=== PATIENT | female | born 1950 | race Hispanic/Latino ===

== ENCOUNTER → 2017-12-09 | Outpatient (CLI) | payer MEDICARE ==
[~2017-12-09] MED LIST: CITA40TA14 PO; CLOP75TA14 PO; LEVO100T4 PO; METOPROLOL PO
== END | disposition home or self-care (01) ==
LOC: SHCH 08:46
PROVIDERS: ATTEND Internal Medicine Cardiovascular Disease
DX: I70.0 Atherosclerosis of aorta (principal); K55.059 Acute (reversible) ischemia of intestine, part and extent unspecified
CPT/HCPCS: 93978

== ENCOUNTER → 2017-12-26 | Outpatient (CLI) | payer MEDICARE ==
[~2017-12-26] MED LIST changes: +IOPAMIDOL-370 100 ML VIAL IV ONE
== END | disposition home or self-care (01) ==
LOC: RAH 07:53
PROVIDERS: ATTEND Internal Medicine Cardiovascular Disease
DX: I70.1 Atherosclerosis of renal artery (principal)
CPT/HCPCS: 74175; Q9967

== ENCOUNTER → 2019-02-22 | Outpatient (CLI) | payer MEDICARE ==
[~2019-02-22] VITALS: Ht 152.4 cm; Wt 82.6 kg
[~2019-02-22] MED LIST changes: -IOPAMIDOL-370 100 ML VIAL IV ONE; +REGADENOSON 0.4 MG/5 ML PF SYG IVP SCH
== END | disposition home or self-care (01) ==
LOC: SHCH 08:36
PROVIDERS: ATTEND Internal Medicine Cardiovascular Disease
DX: I25.810 Atherosclerosis of coronary artery bypass graft(s) without angina pectoris (principal); I10 Essential (primary) hypertension
CPT/HCPCS: 78452; 93017; 96374; A9500 ×2; J2785

== ENCOUNTER → 2019-03-05 | Outpatient (CLI) | payer MEDICARE ==
[~2019-03-05] MED LIST changes: -REGADENOSON 0.4 MG/5 ML PF SYG IVP SCH
== END | disposition home or self-care (01) ==
LOC: SHCH 14:11
PROVIDERS: ATTEND Internal Medicine Cardiovascular Disease
DX: I11.9 Hypertensive heart disease without heart failure (principal); I35.8 Other nonrheumatic aortic valve disorders
CPT/HCPCS: 93306

== ENCOUNTER → 2019-11-14 | Outpatient (CLI) | payer MEDICARE | END | disposition home or self-care (01) | LOC: SHCH 16:02 | PROVIDERS: ATTEND Internal Medicine Cardiovascular Disease | DX: I10 Essential (primary) hypertension (principal) | CPT/HCPCS: 93306 ==

== ENCOUNTER 2020-05-07 06:09 | Day surgery (SDC) | payer MEDICARE ==
[2020-05-05 10:19] LABS: BASOPHILS % (AUTO) 0.7 % (0.0-5.0); EOSINOPHILS % (AUTO) 3.3 % (0.0-8.0); HEMATOCRIT 40.9 % (36-48); LYMPHOCYTES % (AUTO) 34.9 % (21.0-51.0); MEAN CORPUSCULAR HEMOGLOBIN 26.9 pg (27.0-33.0); MEAN CORPUSCULAR HGB CONC 32.5 g/dL (32.0-36.0); MEAN CORPUSCULAR VOLUME 82.6 fL (79-99); MONOCYTES % (AUTO) 6.5 % (3.0-13.0); NEUTROPHILS % (AUTO) 54.3 % (40.0-77.0); PLATELET COUNT (AUTO) 243 K/uL (130-400); RED BLOOD CELL COUNT(AUTO) 4.95 MIL/uL (4.00-5.50); RED CELL DISTRIBUTION WIDTH 15.5 % (11.0-15.5); WHITE BLOOD COUNT (AUTO) 7.2 K/uL (4.8-10.8)
[2020-05-05 10:29] LABS: CREATININE 1.3 mg/dL (0.5-1.5); POTASSIUM 4.8 mmol/L (3.5-5.1)
[2020-05-05 10:33] LABS: INR 0.97 (0.85-1.15); PARTIAL THROMBOPLASTIN TIME 25.7 SEC (26.3-35.5); PROTHROMBIN TIME 10.5 SEC (9.6-11.6)
[2020-05-06 12:26] VITALS: BP 180/96
[2020-05-07] VITALS (10 sets, daily range): BP systolic 128–160; BP diastolic 42–80
[~2020-05-07] VITALS: Ht 149.9 cm; Wt 85.7 kg
[~2020-05-07 06:09] MED LIST changes: +CEFAZOLIN SODIUM 1 GM VIAL IVP SCH; -LEVO100T4 PO; +LEVO50TA6 PO; +MECL-160 PO; +METO25TA3 PO; -METOPROLOL PO; +NITR0.4T50 SL; +SODIUM CHLORIDE 0.9% 500ML 500 ML IV SCH
[2020-05-07] MEDS ORDERED: MEPERIDINE-PF 25 MG/ML SYG ONE ×3 (07:28→08:33)
[2020-05-07] MEDS ORDERED: MIDAZOLAM HCL 1 MG/ML 2ML VIAL ONE ×3 (07:28→08:33)
[2020-05-07] MEDS ORDERED: CEFAZOLIN SODIUM 1 GM VIAL ONE (07:28)
[2020-05-07] MEDS ORDERED: BUPIVACAINE/PF 0.25% 30ML VIAL IJ ONE (07:28)
[2020-05-07] MEDS ORDERED: LIDOCAINE HCL 1% MDV 50ML VIAL ONE (07:28)
[2020-05-07] MEDS ORDERED: SODIUM CHLORIDE 0.9% 1000ML 1,000 ML IV ONE (08:42)
[2020-05-07] MEDS ORDERED: TRAM50TA4 PO (09:27)
[2020-05-07] MEDS ORDERED: ACETAMINOPHEN-CODEINE 300/30MG TAB PO PRN (09:30)
--- NOTE | 2020-05-07 09:43 | NUR ---
Patient arrived to the room , left chest wall pacemaker battery change out was slightly swollen +2 to right insertion area of implant, Nurse Shavon REA advised MD, Doctor Magi came to evaluate patient , no concerns. Will continue to monitor.
== END 2020-05-07 13:30 | disposition home or self-care (01) ==
LOC: DAH 06:09
PROVIDERS: ATTEND Internal Medicine Cardiovascular Disease
DX: Z45.010 Encounter for checking and testing of cardiac pacemaker pulse generator [battery] (principal); I49.5 Sick sinus syndrome; I25.10 Atherosclerotic heart disease of native coronary artery without angina pectoris; I10 Essential (primary) hypertension; E78.5 Hyperlipidemia, unspecified; E11.9 Type 2 diabetes mellitus without complications; E03.9 Hypothyroidism, unspecified; Z79.01 Long term (current) use of anticoagulants; Z79.899 Other long term (current) drug therapy
CPT/HCPCS: 33215; 33228; 36415; 80048; 82948 ×2; 85025; 85610; 85730; 93005; A4215; A4221; A4222; A4223; A4663; C1785; J0690; J2175 ×3; J2250 ×3; J3490 ×2; J7030; 99156; 99157

== ENCOUNTER 2021-06-17 16:07 | Emergency (ER) | payer MEDICARE ==
[~2021-06-17] VITALS: Ht 152.4 cm; Wt 86.2 kg
[~2021-06-17 16:07] MED LIST changes: -CEFAZOLIN SODIUM 1 GM VIAL IVP SCH; -SODIUM CHLORIDE 0.9% 500ML 500 ML IV SCH; +TRAM50TA4 PO
[2021-06-17 18:20] VITALS: BP 136/63
== END 2021-06-17 18:24 | disposition home or self-care (01) ==
LOC: EDH 16:07
DX: S00.83XA Contusion of other part of head, initial encounter (principal); E11.9 Type 2 diabetes mellitus without complications; E78.00 Pure hypercholesterolemia, unspecified; I10 Essential (primary) hypertension; I25.10 Atherosclerotic heart disease of native coronary artery without angina pectoris; M19.90 Unspecified osteoarthritis, unspecified site; Z79.02 Long term (current) use of antithrombotics/antiplatelets; Z79.899 Other long term (current) drug therapy; Z95.0 Presence of cardiac pacemaker; W22.8XXA Striking against or struck by other objects, initial encounter; Y93.89 Activity, other specified; Y92.89 Other specified places as the place of occurrence of the external cause; Y99.8 Other external cause status
CPT/HCPCS: 70450; 93005

== ENCOUNTER 2021-08-29 03:18 | Emergency (ER) | payer MEDICARE ==
[~2021-08-29] VITALS: Ht 152.4 cm; Wt 83.5 kg
[2021-08-29] MEDS ORDERED: ASPIRIN 325MG TAB PO ONE (03:30)
[2021-08-29 03:39] LABS: BILIRUBIN,URINE Negative (NEGATIVE); COLOR,URINE Yellow (YELLOW); GLUCOSE, URINE (UA) 500 mg/dL (NEGATIVE); KETONES,URINE Negative (NEGATIVE); LEUKOCYTE ESTERASE ,URINE Trace (NEGATIVE); NITRATE,URINE Positive (NEGATIVE); OCCULT BLOOD,URINE Negative (NEGATIVE); PROTEIN,URINE Trace mg/dL (NEGATIVE); UROBILINOGEN,URINE 0.2 mg/dL (0.2-1.0)
[2021-08-29 03:47] LABS: APPEARANCE,URINE SLIGHTLY CLOUDY (CLEAR)
[2021-08-29 03:52] LABS: BASOPHILS % (AUTO) 0.8 % (0.0-5.0); EOSINOPHILS % (AUTO) 2.4 % (0.0-8.0); LYMPHOCYTES % (AUTO) 44.6 % (21.0-51.0); MEAN CORPUSCULAR HEMOGLOBIN 24.2 pg (27.0-33.0); MEAN CORPUSCULAR HGB CONC 31.8 g/dL (32.0-36.0); MONOCYTES % (AUTO) 8.4 % (3.0-13.0); NEUTROPHILS % (AUTO) 43.5 % (40.0-77.0); PLATELET COUNT (AUTO) 245 K/uL (130-400); RED BLOOD CELL COUNT(AUTO) 4.34 MIL/uL (4.00-5.50); RED CELL DISTRIBUTION WIDTH 15.3 % (11.0-15.5); WHITE BLOOD COUNT (AUTO) 7.5 K/uL (4.8-10.8)
[2021-08-29 04:02] LABS: CREATININE 1.3 mg/dL (0.5-1.5); POTASSIUM 4.6 mmol/L (3.5-5.1)
[2021-08-29 04:07] LABS: ALBUMIN 3.9 g/dL (3.5-5.0); BILIRUBIN,TOTAL 0.4 mg/dL (0.2-1.0); TOTAL PROTEIN, SERUM 6.9 g/dL (6.0-8.3)
[2021-08-29 04:12] LABS: BACTERIA,URINE Many /HPF (None Seen); RBC,URINE 0-1 /HPF (0-1)
[2021-08-29 04:13] LABS: SQUAMOUS EPITHELIAL CELL,UR Moderate /HPF (0-2)
[2021-08-29 05:00] VITALS: BP 134/73
== END 2021-08-29 05:51 | disposition home or self-care (01) ==
LOC: EDH 03:18
DX: R07.89 Other chest pain (principal); R00.2 Palpitations; R06.02 Shortness of breath; I25.10 Atherosclerotic heart disease of native coronary artery without angina pectoris; E11.9 Type 2 diabetes mellitus without complications; I10 Essential (primary) hypertension; M19.90 Unspecified osteoarthritis, unspecified site; Z79.02 Long term (current) use of antithrombotics/antiplatelets; Z79.82 Long term (current) use of aspirin; Z79.899 Other long term (current) drug therapy; Z95.1 Presence of aortocoronary bypass graft
CPT/HCPCS: 36415; 71045; 80053; 81001; 83690; 83880; 84484; 85025; 87077; 87088; 87186; 93005

== ENCOUNTER 2021-09-24 15:11 | Emergency (ER) | payer MEDICARE ==
[~2021-09-24] VITALS: Ht 149.9 cm; Wt 83.9 kg
[2021-09-24] MEDS ORDERED: ACETAMINOPHEN 500 MG TABLET PO ONE (15:30)
[2021-09-24] MEDS ORDERED: ACET-66 PO (16:44)
[2021-09-24 16:59] VITALS: BP 120/56
== END 2021-09-24 16:46 | disposition home or self-care (01) ==
LOC: EDH 15:11
DX: S00.83XA Contusion of other part of head, initial encounter (principal); M25.572 Pain in left ankle and joints of left foot; I10 Essential (primary) hypertension; E11.9 Type 2 diabetes mellitus without complications; I25.10 Atherosclerotic heart disease of native coronary artery without angina pectoris; F41.9 Anxiety disorder, unspecified; Z90.710 Acquired absence of both cervix and uterus; Z79.899 Other long term (current) drug therapy; W10.9XXA Fall (on) (from) unspecified stairs and steps, initial encounter; Y93.89 Activity, other specified; Y92.098 Other place in other non-institutional residence as the place of occurrence of the external cause; Y99.8 Other external cause status
CPT/HCPCS: 70450; 72125; 73600

== ENCOUNTER → 2022-03-04 | Outpatient (CLI) | payer MEDICARE ==
[~2022-03-04] MED LIST changes: +AEC81 PO; -CITA40TA14 PO; +GLIP2.5T2 PO; +LEVO175C2 PO; -LEVO50TA6 PO; +LORA0.5P MC; -MECL-160 PO; +METO-391 PO; -METO25TA3 PO; +RANO500T6 PO; -TRAM50TA4 PO
[2022-03-04 12:53] LABS: CREATININE 1.5 mg/dL (0.5-1.5); POTASSIUM 5.6 mmol/L (3.5-5.1)
== END | disposition home or self-care (01) ==
LOC: LAB 11:52
PROVIDERS: ATTEND Student in an Organized Health Care Education/Training Program
DX: E78.5 Hyperlipidemia, unspecified (principal)
CPT/HCPCS: 36415; 80048

== ENCOUNTER → 2023-01-18 | Outpatient (CLI) | payer MEDICARE ==
[~2023-01-18] MED LIST changes: +CLOP-31 PO; -CLOP75TA14 PO
[2023-01-18 16:36] LABS: CREATININE 1.4 mg/dL (0.5-1.5); POTASSIUM 5.4 mmol/L (3.5-5.1)
== END | disposition home or self-care (01) ==
LOC: LAB 13:26
PROVIDERS: ATTEND Student in an Organized Health Care Education/Training Program
DX: I10 Essential (primary) hypertension (principal)
CPT/HCPCS: 36415; 80048

== ENCOUNTER 2024-03-18 09:53 | Emergency (ER) | payer MEDICARE ==
[~2024-03-18] VITALS: Ht 154.9 cm; Wt 67.6 kg
[2024-03-18 10:10] LABS: BASOPHILS # (AUTO) 0.06 K/uL (0.00-0.20); BASOPHILS % (AUTO) 0.8 % (0.0-5.0); EOSINOPHILS # (AUTO) 0.19 K/uL (0.00-0.70); EOSINOPHILS % (AUTO) 2.4 % (0.0-8.0); HEMATOCRIT 29.7 % (36-48); IMMATURE GRANULOCYTE ABSOLUTE 0.03 K/uL (0-1); LYMPHOCYTES # (AUTO) 1.9 K/uL (1.0-4.8); LYMPHOCYTES % (AUTO) 24.4 % (21.0-51.0); MEAN CORPUSCULAR HEMOGLOBIN 21.8 pg (27.0-33.0); MEAN CORPUSCULAR VOLUME 70.4 fL (79-99); MONOCYTES # (AUTO) 0.4 K/uL (0.1-1.0); MONOCYTES % (AUTO) 5.6 % (3.0-13.0); NEUTROPHILS # (AUTO) 5.2 K/uL (1.8-7.7); NEUTROPHILS % (AUTO) 66.4 % (40.0-77.0); PLATELET COUNT (AUTO) 283 K/uL (130-400); RED BLOOD CELL COUNT(AUTO) 4.22 MIL/uL (4.00-5.50); RED CELL DISTRIBUTION WIDTH 19.4 % (11.0-15.5); WHITE BLOOD COUNT (AUTO) 7.8 K/uL (4.8-10.8)
[2024-03-18 10:18] LABS: CREATININE 1.5 mg/dL (0.5-1.0); POTASSIUM 5.5 mmol/L (3.5-5.1)
[2024-03-18 10:19] LABS: INR 1.01 (0.85-1.15); PROTHROMBIN TIME 10.9 SEC (9.6-11.6)
[2024-03-18 10:22] LABS: ALBUMIN 3.8 g/dL (3.5-5.0); BILIRUBIN,TOTAL 0.4 mg/dL (0.2-1.0); TOTAL PROTEIN, SERUM 6.8 g/dL (6.0-8.3)
[2024-03-18 10:28] LABS: B-TYPE NATRIURETIC PEPTIDE 353 pg/mL (0-100)
[2024-03-18] MEDS: FUROSEMIDE 80 MG TABLET PO ONE (11:14)
[2024-03-18] MEDS ORDERED: FUROSEMIDE 100MG VIAL IVP ONE (11:30)
[2024-03-18 12:01] VITALS: BP 132/57; PULSE 65; RESP 19; O2SAT 99
[2024-03-18] MEDS ORDERED: ASPIRIN 325MG TAB PO ONE (12:30)
[2024-03-18] MEDS ORDERED: NA ZIRCON CYCLOSIL(LOKELMA 10GM) PO ONE (12:30)
[2024-03-18] MEDS ORDERED: ACETAMINOPHEN 500 MG TABLET PO PRN (12:30)
[2024-03-18] MEDS ORDERED: HEPARIN 5,000 UNIT VIAL IV PRN (13:00)
[2024-03-18] MEDS ORDERED: HEPARIN 25,000 UNITS/250ML D5W 250 ML IV SCH (13:00)
[2024-03-18] MEDS ORDERED: METOPROLOL SUCCINATE 25 MG TAB.SR.24H PO ONE (13:00)
[2024-03-18] MEDS ORDERED: FAMOTIDINE 20MG VIAL IV SCH (21:00)
[2024-03-18] MEDS ORDERED: ATORVASTATIN 40 MG TABLET PO SCH (21:00)
[2024-03-19] MEDS ORDERED: CLOPIDOGREL 75MG TAB PO SCH (09:00)
[2024-03-19] MEDS ORDERED: METOPROLOL SUCCINATE 25 MG TAB.SR.24H PO SCH (09:00)
[2024-03-19] MEDS ORDERED: ASPIRIN 81MG CHEW TAB PO SCH (09:00)
== END 2024-03-18 12:50 | disposition left against medical advice (07) ==
LOC: EDH 09:53 → EDHIP 12:15 → UNDOADMIN 12:15 → EDH 12:50
DX: I21.3 ST elevation (STEMI) myocardial infarction of unspecified site (principal); E87.5 Hyperkalemia; E11.22 Type 2 diabetes mellitus with diabetic chronic kidney disease; I12.9 Hypertensive chronic kidney disease with stage 1 through stage 4 chronic kidney disease, or unspecified chronic kidney disease; N18.9 Chronic kidney disease, unspecified; D63.1 Anemia in chronic kidney disease; E11.65 Type 2 diabetes mellitus with hyperglycemia; I48.91 Unspecified atrial fibrillation; Z79.01 Long term (current) use of anticoagulants; Z79.02 Long term (current) use of antithrombotics/antiplatelets; Z79.82 Long term (current) use of aspirin; Z79.84 Long term (current) use of oral hypoglycemic drugs; Z79.890 Hormone replacement therapy; Z79.899 Other long term (current) drug therapy; Z90.49 Acquired absence of other specified parts of digestive tract; Z90.710 Acquired absence of both cervix and uterus; Z91.199 Patient's noncompliance with other medical treatment and regimen due to unspecified reason; Z95.0 Presence of cardiac pacemaker; Z95.1 Presence of aortocoronary bypass graft
CPT/HCPCS: 36415; 71045; 80053; 83880; 84484; 85025; 85610; 85730; 93005

== ENCOUNTER 2024-04-03 09:26 | Emergency (ER) | payer MEDICARE ==
[~2024-04-03] VITALS: Ht 152.4 cm; Wt 76.7 kg
[2024-04-03 09:30] VITALS: PULSE 63; RESP 20
[2024-04-03 11:22] VITALS: BP 107/57
[2024-04-03] MEDS: KETOROLAC 30MG VIAL (30MG/ML) IM ONE (11:53)
[2024-04-03] MEDS ORDERED: IBUP-2070 PO (12:44)
== END 2024-04-03 13:14 | disposition home or self-care (01) ==
LOC: EDH 09:26
DX: S40.011A Contusion of right shoulder, initial encounter (principal); S46.911A Strain of unspecified muscle, fascia and tendon at shoulder and upper arm level, right arm, initial encounter; R51.9 Headache, unspecified; E11.9 Type 2 diabetes mellitus without complications; I10 Essential (primary) hypertension; Z79.82 Long term (current) use of aspirin; Z79.84 Long term (current) use of oral hypoglycemic drugs; Z79.899 Other long term (current) drug therapy; Z95.0 Presence of cardiac pacemaker; Z95.1 Presence of aortocoronary bypass graft; Z98.890 Other specified postprocedural states; W01.0XXA Fall on same level from slipping, tripping and stumbling without subsequent striking against object, initial encounter; Y93.89 Activity, other specified; Y92.89 Other specified places as the place of occurrence of the external cause; Y99.8 Other external cause status
CPT/HCPCS: 99285; 70450; 72040; 73000; 73060; 73030; 96372; 93005; J1885

== ENCOUNTER 2024-07-05 14:25 | Emergency (ER) | payer MEDICARE ==
[~2024-07-05] VITALS: Ht 152.4 cm; Wt 80.7 kg
[~2024-07-05 14:25] MED LIST changes: +IBUP-2070 PO
[2024-07-05] MEDS: ADENOSINE 6MG VIAL IV ONE (14:34)
[2024-07-05 15:05] LABS: CREATININE 1.7 mg/dL (0.5-1.0); POTASSIUM 5.2 mmol/L (3.5-5.1)
[2024-07-05 15:06] LABS: BASOPHILS # (AUTO) 0.04 K/uL (0.00-0.20); BASOPHILS % (AUTO) 0.5 % (0.0-5.0); EOSINOPHILS # (AUTO) 0.21 K/uL (0.00-0.70); EOSINOPHILS % (AUTO) 2.4 % (0.0-8.0); HEMATOCRIT 32.5 % (36-48); IMMATURE GRANULOCYTE ABSOLUTE 0.04 K/uL (0-1); LYMPHOCYTES # (AUTO) 3.2 K/uL (1.0-4.8); LYMPHOCYTES % (AUTO) 36.6 % (21.0-51.0); MEAN CORPUSCULAR HEMOGLOBIN 21.3 pg (27.0-33.0); MEAN CORPUSCULAR HGB CONC 30.2 g/dL (32.0-36.0); MEAN CORPUSCULAR VOLUME 70.5 fL (79-99); MONOCYTES # (AUTO) 0.5 K/uL (0.1-1.0); MONOCYTES % (AUTO) 5.5 % (3.0-13.0); NEUTROPHILS # (AUTO) 4.8 K/uL (1.8-7.7); NEUTROPHILS % (AUTO) 54.5 % (40.0-77.0); PLATELET COUNT (AUTO) 319 K/uL (130-400); RED BLOOD CELL COUNT(AUTO) 4.61 MIL/uL (4.00-5.50); RED CELL DISTRIBUTION WIDTH 18.5 % (11.0-15.5); WHITE BLOOD COUNT (AUTO) 8.7 K/uL (4.8-10.8)
[2024-07-05 15:50] LABS: B-TYPE NATRIURETIC PEPTIDE 739 pg/mL (0-100)
[2024-07-05 16:23] LABS: APPEARANCE,URINE CLEAR (CLEAR); BILIRUBIN,URINE NEGATIVE (NEGATIVE); COLOR,URINE LIGHT-YELLOW (YELLOW); GLUCOSE, URINE (UA) TRACE mg/dL (NEGATIVE); KETONES,URINE NEGATIVE (NEGATIVE); LEUKOCYTE ESTERASE ,URINE NEGATIVE Leu/uL (NEGATIVE); NITRATE,URINE 2+ (NEGATIVE); OCCULT BLOOD,URINE NEGATIVE (NEGATIVE); PH,URINE 5.5 (5.0-8.0); PROTEIN,URINE NEGATIVE (NEGATIVE); UROBILINOGEN,URINE 0.2 mg/dL (0.2-1.0)
[2024-07-05 16:25] LABS: ADD UA MICROSCOPIC YES
[2024-07-05 16:29] LABS: BACTERIA,URINE RARE /HPF (None Seen); MUCUS,URINE RARE LPF (None Seen); RBC,URINE 0-1 /HPF (0-1); SQUAMOUS EPITHELIAL CELL,UR RARE /HPF (0-2)
[2024-07-05 18:02] VITALS: BP 156/54; PULSE 64; RESP 16; TEMP 98.3; O2SAT 100
== END 2024-07-05 18:07 | disposition left against medical advice (07) ==
LOC: EDH 14:25
DX: I47.10 Supraventricular tachycardia, unspecified (principal); E11.9 Type 2 diabetes mellitus without complications; E78.00 Pure hypercholesterolemia, unspecified; I10 Essential (primary) hypertension; M19.90 Unspecified osteoarthritis, unspecified site; Z95.0 Presence of cardiac pacemaker; Z79.899 Other long term (current) drug therapy; Z79.84 Long term (current) use of oral hypoglycemic drugs; Z79.82 Long term (current) use of aspirin; Z95.1 Presence of aortocoronary bypass graft
CPT/HCPCS: 99285; 96374; 71045; 84484; 80048; 83880; 85025; 87086 ×2; 87186; 81001; 36415; 93005 ×2; J0153

== ENCOUNTER 2024-07-28 09:07 | Emergency (ER) | payer MEDICARE ==
[~2024-07-28] VITALS: Ht 152.4 cm; Wt 79.4 kg
[2024-07-28 09:24] LABS: BASOPHILS # (AUTO) 0.07 K/uL (0.00-0.20); BASOPHILS % (AUTO) 0.7 % (0.0-5.0); EOSINOPHILS # (AUTO) 0.24 K/uL (0.00-0.70); EOSINOPHILS % (AUTO) 2.2 % (0.0-8.0); HEMATOCRIT 31.3 % (36-48); IMMATURE GRANULOCYTE ABSOLUTE 0.04 K/uL (0-1); LYMPHOCYTES # (AUTO) 3.2 K/uL (1.0-4.8); LYMPHOCYTES % (AUTO) 29.7 % (21.0-51.0); MEAN CORPUSCULAR HEMOGLOBIN 21.3 pg (27.0-33.0); MEAN CORPUSCULAR VOLUME 70.8 fL (79-99); MONOCYTES # (AUTO) 0.8 K/uL (0.1-1.0); MONOCYTES % (AUTO) 7.6 % (3.0-13.0); NEUTROPHILS # (AUTO) 6.4 K/uL (1.8-7.7); NEUTROPHILS % (AUTO) 59.4 % (40.0-77.0); PLATELET COUNT (AUTO) 325 K/uL (130-400); RED BLOOD CELL COUNT(AUTO) 4.42 MIL/uL (4.00-5.50); RED CELL DISTRIBUTION WIDTH 18.5 % (11.0-15.5); WHITE BLOOD COUNT (AUTO) 10.7 K/uL (4.8-10.8)
[2024-07-28] MEDS: ADENOSINE 6MG VIAL IV ONE ×3 (09:35→09:36)
[2024-07-28] MEDS: LACTATED RINGERS 1000ML 1,000 ML IV ONE (09:37)
[2024-07-28 09:47] LABS: CREATININE 1.6 mg/dL (0.5-1.0); POTASSIUM 5.2 mmol/L (3.5-5.1)
[2024-07-28 09:48] LABS: PROTHROMBIN TIME 10.8 SEC (9.6-11.6)
[2024-07-28 09:49] LABS: B-TYPE NATRIURETIC PEPTIDE 509 pg/mL (0-100); PARTIAL THROMBOPLASTIN TIME 24.5 SEC (26.3-35.5)
[2024-07-28 09:52] LABS: MAGNESIUM 2.1 mg/dL (1.80-2.40)
--- NOTE | 2024-07-28 09:59 | HMCIMG ---
PORTABLE CHEST RADIOGRAPH INDICATION: SVT COMPARISON: 07/05/2024 FINDINGS: Extensive hardware overlying the field of view slightly limits the study. Heart size is normal. The pulmonary vascularity and maldonado appear normal. No abnormal pulmonary parenchymal opacity or consolidation identified. No significant pleural effusion noted. No pneumothorax detected. IMPRESSION: No radiographic evidence for any acute cardiopulmonary process.
--- NOTE | 2024-07-28 10:04 | ERN ---
General Chief Complaint: Palpitations Stated Complaint: PALPITATIONS Time Seen by MD: 09:10 Source: patient History of Present Illness Initial Comments Patient is a 74-year-old female coming in to be evaluated for racing heart. Patient states he has a history of SVT and symptoms began earlier today. No fever no chills. Allergies: Coded Allergies: No Known Allergies (Verified Allergy, Unknown, 08/28/23) No Known Drug Allergies (Verified Allergy, Unknown, 12/26/15) Home Meds Active Scripts Ibuprofen (Ibuprofen) 600 Mg Tablet, 600 MG PO [id number] PRN for PAIN, #12 TAB 0 Refills Prov:STEPHANY TERAN Mian MCCLAIN 04/03/24 Metoprolol Succinate (Metoprolol Succinate) 50 Mg Tab.er.24h, 50 MG PO DAILY for 90 Days, #90 TAB 1 Refill Prov:PENNY SR Jr., MD 02/08/22 Aspirin (ASPIRIN 81 MG ECTAB) 81 Mg Ectab, 81 MG PO DAILY for 90 Days, #90 TAB.EC Prov:PENNY SR Jr., MD 02/08/22 Reported Medications Levothyroxine Sodium (Levothyroxine) 175 Mcg Capsule, 175 MCG PO DAILY, CAP 02/07/22 Glipizide (Glipizide ER) 2.5 Mg Tab.er.24, 2.5 MG PO DAILY 02/07/22 Ranolazine (Ranolazine ER) 500 Mg Tab.er.12h, 500 MG PO BID, TAB 02/07/22 Lorazepam (Lorazepam) 0.5 Gm Powder, 0.5 GM MC DAILY PRN for ANXIETY/AGITATION, APPL 02/07/22 Nitroglycerin (Nitroglycerin) 0.4 Mg Tab.subl, 0.4 MG SL q5min x3 PRN for CHEST PAIN, TAB.SL 05/06/20 Clopidogrel Bisulfate (Plavix) 75 Mg Tablet, 75 MG PO DAILY, TAB 12/26/15 Past Medical History Past Medical History: Diabetes-Type II, High Cholesterol, Hypertension Medical History Other: OA, Past Surgical History: CABG Surgical History Other: PACEMAKER Social History Social History: Negative, Lives with family, Other Female( History) History: Not Applicable ROS Dictation CONSTITUTIONAL: No chills, no fever, no weakness, diaphoresis, no malaise. HEAD/FACE: No signs of trauma. EENT: No eye pain, no blurred vision, no tearing, no double vision, no ear pain, no ear discharge, no nose pain, no nasal congestion, no throat pain, no throat swelling, no mouth pain. RESPIRATORY: No cough, no orthopnea, no SOB, no stridor, no wheezing. CARDIOVASCULAR: No chest pain, no edema, no palpitations, no syncope. GASTROINTESTINAL/ABDOMINAL: No abdominal pain, no constipation, no diarrhea, no nausea, no vomiting. GENITOURINARY: No abnormal discharge, no dysuria, no frequent urination, no hematuria. No complaints of pain in the genitals. MUSCULOSKELETAL: No back pain, no gout, no joint pain, no joint swelling, no muscle pain, no muscle stiffness, no neck pain. INTEGUMENTARY: No change in color, no change in hair/nails, no dryness, no lesion, no lumps, no rash. NEUROLOGICAL/PSYCH: No anxiety, not depressed, no emotional problem, no headache, no numbness, no pre-existing deficit, no history of seizures, no tr emors, no weakness. HEMATOLOGIC/LYMPHATIC: Not anemic, no history of blood clots, no apparent bleeding, no bruising, glands not swollen. All Systems Negative, Except as Noted. Physical Exam Physical Exam Dictation VITAL SIGNS: Reviewed. GENERAL APPEARANCE: Alert, oriented x3, acute distress, obese. HEAD AND FACE: Non-traumatic. EYES: PERRL, pink conjunctivas, eyelid no trauma, anterior chamber clear. EARS: Pinnas intact and no signs of trauma or erythema. Ear canals clear and no discharge. TMs no erythema. NOSE: No discharge, no bleeding. OROPHARYNX: Mouth normal, teeth no caries, tongue pink. Pharynx clear, no erythema. Tonsils no exudates, no abscesses noted. Mucous membrane moist. NECK: Supple, non-tender, no thyromegaly, no masses, no JVD, no bruits. BREAST: Deferred. CHEST: No tenderness, no crepitus, no paradoxical movement, no retractions. LUNGS: Clear, well-ventilated, symmetric, no rales, no wheezing, no rhonchi, no stridor, good breath sounds bilaterally. HEART: Regular rate, regular rhythm, no murmur, no gallops. VASCULAR: No peripheral edema. ABDOMEN: Soft, positive bowel sounds, nondistended, no guarding, nontender, no rebound, no masses no hepatomegaly, no splenomegaly, no Sanchez's sign, no hernias. RECTAL: Deferred. GENITAL: Deferred. NEUROLOGICAL: Normal speech, gross motor function intact, gross sensory f unction intact. MUSCULOSKELETAL: Neck nontender, full range of motion, back nontender, full range of motion. EXTREMITIES: Nontender, full range of motion. SKIN: Color pink, dry, no turgor, no rash, no lacerations, no abrasions, no contusions. LYMPHATICS: Deferred. Results Laboratory and Microbiology Lab and Micro Result Laboratory Tests Test 07/28/24 09:10 07/28/24 10:09 White Blood Count 10.7 K/uL (4.8-10.8) Red Blood Count 4.42 MIL/uL (4.00-5.50) Hemoglobin 9.4 g/dL (12.0-16.0) L Hematocrit 31.3 % (36-48) L Mean Corpuscular Volume 70.8 fL (79-99) L Mean Corpuscular Hemoglobin 21.3 pg (27.0-33.0) L Mean Corpuscular Hemoglobin Concent 30.0 g/dL (32.0-36.0) L Red Cell Distribution Width 18.5 % (11.0-15.5) H Platelet Count 325 K/uL (130-400) Mean Platelet Volume 9.9 fL (7.5-10.5) Immature Granulocyte % (Auto) 0.4 % (0-1) Neutrophils (%) (Auto) 59.4 % (40.0-77.0) Lymphocytes (%) (Auto) 29.7 % (21.0-51.0) Monocytes (%) (Auto) 7.6 % (3.0-13.0) Eosinophils (%) (Auto) 2.2 % (0.0-8.0) Basophils (%) (Auto) 0.7 % (0.0-5.0) Neutrophils # (Auto) 6.4 K/uL (1.8-7.7) Lymphocytes # (Auto) 3.2 K/uL (1.0-4.8) Monocytes # (Auto) 0.8 K/uL (0.1-1.0) Eosinophils # (Auto) 0.24 K/uL (0.00-0.70) Basophils # (Auto) 0.07 K/uL (0.00-0.20) Absolute Immature Granulocyte (auto 0.04 K/uL (0-1) Nucleated Red Blood Cells 0.0 % (0.0-0.19) Prothrombin Time 10.8 SEC (9.6-11.6) Prothromb Time International Ratio 1.00 (0.85-1.15) Activated Partial Thromboplast Time 24.5 SEC (26.3-35.5) L Sodium Level 139 mmol/L (136-145) Potassium Level 5.2 mmol/L (3.5-5.1) H Chloride Level 105 mmol/L (101-111) Carbon Dioxide Level 23 mmol/L (21-32) Blood Urea Nitrogen 23 mg/dL (7-18) H Creatinine 1.6 mg/dL (0.5-1.0) H Glomerular Filtration Rate Calc 33 mL/min (>90) Random Glucose 271 mg/dL (70-105) H Total Calcium 8.5 mg/dL (8.5-10.1) Magnesium Level 2.10 mg/dL (1.80-2.40) Total Creatine Kinase 35 U/L (21-232) # Troponin I High Sensitivity 14 ng/L (4-50) B-Type Natriuretic Peptide 509 pg/mL (0-100) H Urine Color LIGHT-YELLOW (YELLOW) Urine Appearance CLOUDY (CLEAR) H Urine pH 5.0 (5.0-8.0) Urine Specific [place] 1.010 (1.001-1.031) Urine Protein 10 mg/dL (NEGATIVE) H Urine Glucose (UA) 50 mg/dL (NEGATIVE) H Urine Ketones NEGATIVE mg/dL (NEGATIVE) Urine Occult Blood NEGATIVE (NEGATIVE) Urine Nitrate 1+ (NEGATIVE) H Urine Bilirubin NEGATIVE mg/dL (NEGATIVE) Urine Urobilinogen 0.2 mg/dL (0.2-1.0) Urine Leukocyte Esterase 75 Kenny/uL (NEGATIVE) H Labs Reviewed?: Yes EKG/XRAY/US/CT/MRI EKG Comment 07/28/2024 time 9:17 a.m. Ventricular rate [address] wave elevation or depression 2nd EKG 07/28/2024 time 9:31 a.m. Ventricular rate [address] wave elevation or depression MN 64 MDM MDM: Differential diagnosis: SVT, CHF, UTI Rationale: Tests considered and ordered secondary to shared decision making include: labs, ECG and radiology Previous outside records reviewed: Old ER visits. Risk of complication and/or morbidity or mortality of patient management: None Medications-Per medication reconciliation Need for hospitalization: Patient does meet criteria for hospitalization. Need for emergency major/minor surgery: No There are no social concerns with this patient. Prescription drug management Prescriptions will include symptomatic care Patient's prior external medical records from other ER visits were reviewed by me as indicated. Prior testing and results from previous visits were reviewed. Prior tests were taken into account with medical decision making and resource utilization, independent historian/historians were used to obtain complete medical history. I independently interpreted the test that were performed, results were reviewed by me and considered findings on radiology if ordered. Medical management and examination interpretation discussions were had by me with other qualified healthcare professionals as indicated for the patient's care. Patient is a 74-year-old female coming in to be evaluated for racing heart. On initial EKG patient presenting with SVT although she does have a history of SVT patient has multiple comorbidities so patient will be admitted under the care of hospitalist group for ongoing management. Patient did receive adenosine 6 mg x 1 SVT improved significantly. ED Course Orders Procedure Category Date Status Time Cbc With Differential LAB 07/28/24 In Process 09:14 Prothrombin Time With LAB 07/28/24 Complete INR 09:14 B-Type Natriuretic LAB 07/28/24 In Process Peptide 09:14 Chest 1vw RAD 07/28/24 Resulted 09:14 12 Lead Ekg Tracing- EKG 07/28/24 Logged Technical 09:14 Lactated Ringers PHA 07/28/24 Complete 1000ml (Lactated 09:30 Magnesium LAB 07/28/24 Complete 09:14 Creatine Kinase, Total LAB 07/28/24 Complete 09:14 Troponin I High LAB 07/28/24 Complete Sensitivity 09:14 Urinalysis Profile LAB 07/28/24 In Process 09:14 Partial LAB 07/28/24 Complete Thromboplastin Time 09:14 Basic Metabolic Panel LAB 07/28/24 Complete 09:14 Adenosine 6mg Vial PHA 07/28/24 Complete (Adenocard 6mg Vial) 09:30 Adenosine 6mg Vial PHA 07/28/24 Complete (Adenocard 6mg Vial) 09:30 Adenosine 6mg Vial PHA 07/28/24 Complete (Adenocard 6mg Vial) 09:17 12 Lead Ekg Tracing- EKG 07/28/24 Logged Technical 09:43 Culture Urine EZRA 07/28/24 Logged 10:44 Ceftriaxone 1g Vial PHA 07/28/24 Verified (Rocephine 1g Inj) 11:00 Furosemide 20mg Vial PHA 07/28/24 Verified (Lasix 20mg Vial) 11:00 Na Zircon PHA 07/28/24 Verified Cyclosil-Lokelma 10g 11:00 Current Medications Medications (Trade) Dose Ordered Sig/Wilson Route PRN Reason Start Time Stop Time Status Last Admin Dose Admin Adenosine (Adenocard 6mg Vial) 6 mg ONCE ONCE IV 07/28/24 09:30 07/28/24 09:31 DC 07/28/24 09:35 Adenosine (Adenocard 6mg Vial) 6 mg STK-MED ONCE IV 07/28/24 09:17 07/28/24 09:17 DC Adenosine (Adenocard 6mg Vial) 12 mg ONCE ONCE IV 07/28/24 09:30 07/28/24 09:31 DC Lactated Ringer's 1,000 ml @ 0 mls/hr ONCE ONCE IV 07/28/24 09:30 07/28/24 09:31 DC 07/28/24 09:37 Vital Signs Date Time Temp Pulse Resp B/P (MAP) Pulse Ox O2 Delivery O2 Flow Rate FiO2 07/28/24 09:47 71 16 121/59 99 Room Air* 0 21 07/28/24 09:35 173 07/28/24 09:15 176 24 95/56 98 Room Air* 0 21 07/28/24 09:12 98.2 173 20 107/64 100 Room Air 0 Additional Procedures Additional Procedures : Additional Procedures: cardioversion/defib Progress Adenosine given since SVT was present patient improved heart rate improved. Critical Care Note Comments Critical Care Procedure Note Authorized and Performed by: Total critical care time: Approximately 36 minutes Due to a high probability of clinically significant, life threatening deterioration, the patient required my highest level of preparedness to intervene emergently and I personally spent this critical care time directly and personally managing the patient. This critical care time included obtaining a history; examining the patient; pulse oximetry; ordering and review of studies; arranging urgent treatment with development of a management plan; evaluation of patient's response to treatment; frequent reassessment; and, discussions with other providers. This critical care time was performed to assess and manage the high probability of imminent, life-threatening deterioration that could result in multi-organ failure. It was exclusive of separately billable procedures and treating other patients and teaching time. Please see MDM section and the rest of the note for further information on patient assessment and treatment. DX & DISP Disposition: Inpatient Decision to Admit Time: 10:54 Departure Impression: Primary Impression: Hyperkalemia Additional Impressions: SVT (supraventricular tachycardia), Acute on chronic diastolic CHF (congestive heart failure) Condition: Stable Referrals: KENNETH COOL (PCP) NICOLLE FRAGA MD Jul 28, 2024 10:03
[2024-07-28 10:37] LABS: APPEARANCE,URINE CLOUDY (CLEAR); BILIRUBIN,URINE NEGATIVE (NEGATIVE); COLOR,URINE LIGHT-YELLOW (YELLOW); GLUCOSE, URINE (UA) 50 mg/dL (NEGATIVE); KETONES,URINE NEGATIVE (NEGATIVE); LEUKOCYTE ESTERASE ,URINE 75 Leu/uL (NEGATIVE); NITRATE,URINE 1+ (NEGATIVE); OCCULT BLOOD,URINE NEGATIVE (NEGATIVE); PROTEIN,URINE 10 mg/dL (NEGATIVE); UROBILINOGEN,URINE 0.2 mg/dL (0.2-1.0)
[2024-07-28 10:43] LABS: ADD UA MICROSCOPIC YES
--- NOTE | 2024-07-28 11:04 | NUR ---
SPOKE WITH DR. BARFIELD, HE WAS CONSULTED
[2024-07-28 11:17] LABS: BACTERIA,URINE RARE /HPF (None Seen); MUCUS,URINE RARE LPF (None Seen); RBC,URINE 0-1 /HPF (0-1); SQUAMOUS EPITHELIAL CELL,UR RARE /HPF (0-2)
--- NOTE | 2024-07-28 11:19 | PN ---
[facility] PROGRESS NOTE Date of Service: Jul 28, 2024 Time of Service: 11:14 DATE OF SERVICE:07/28/2024 74-year-old female with past medical history of hypertension, hyperlipidemia, history of atrial fibrillation, SVT, CAD status post CABG, history of pacemaker placement who presented to the hospital for palpitations. I was requested to admit the patient by ED provider. When I saw the patient; patient is currently declining to be admitted. Patient's is also present at bedside. Patient is alert oriented x 4 and currently declines to be admitted. I did discuss with patient that she had SVT needing adenosine. She also has evidence of mild hyperkalemia with acute kidney injury on chronic kidney disease. She also has suspected UTI. I did discuss that I was planning to admit her for observation for today with consultation with Cardiology. Patient has declined to be admitted and declines to be interviewed further. I did not place any orders and I was unable to perform physical examination since patient declined. I discussed this with ED provider who will further coordinate care with the patient. Hospitalist service is available for admission if patient decides to be admitted. I did discuss this with ED provider. Discussed with patient regarding increased mortality and morbidity if she decides to leave against medical advice. Ellyn Martin MD REVIEW OF SYSTEMS Unable to obtain. Patient declined PHYSICAL EXAM Patient declined Vital Signs (last 8hr) Date Time Temp Pulse Resp B/P (MAP) Pulse Ox O2 Delivery O2 Flow Rate FiO2 07/28/24 09:47 71 16 121/59 99 Room Air* 0 21 07/28/24 09:35 173 07/28/24 09:15 176 24 95/56 98 Room Air* 0 21 07/28/24 09:12 98.2 173 20 107/64 100 Room Air 0 LABS: Laboratory: Test 07/28/24 10:09 07/28/24 09:10 Range/Units Urine Color LIGHT-YELLOW YELLOW Urine Appearance CLOUDY H CLEAR Urine pH 5.0 5.0-8.0 Urine Specific [place] 1.010 1.001-1.031 Urine Protein 10 H NEGATIVE mg/dL Urine Glucose (UA) 50 H NEGATIVE mg/dL Urine Ketones NEGATIVE NEGATIVE mg/dL Urine Occult Blood NEGATIVE NEGATIVE Urine Nitrate 1+ H NEGATIVE Urine Bilirubin NEGATIVE NEGATIVE mg/dL Urine Urobilinogen 0.2 0.2-1.0 mg/dL Urine Leukocyte Esterase 75 H NEGATIVE Kenny/uL White Blood Count 10.7 4.8-10.8 K/uL Red Blood Count 4.42 4.00-5.50 MIL/uL Hemoglobin 9.4 L 12.0-16.0 g/dL Hematocrit 31.3 L 36-48 % Mean Corpuscular Volume 70.8 L 79-99 fL Mean Corpuscular Hemoglobin 21.3 L 27.0-33.0 pg Mean Corpuscular Hemoglobin Concent 30.0 L 32.0-36.0 g/dL Red Cell Distribution Width 18.5 H 11.0-15.5 % Platelet Count 325 130-400 K/uL Mean Platelet Volume 9.9 7.5-10.5 fL Immature Granulocyte % (Auto) 0.4 0-1 % Neutrophils (%) (Auto) 59.4 40.0-77.0 % Lymphocytes (%) (Auto) 29.7 21.0-51.0 % Monocytes (%) (Auto) 7.6 3.0-13.0 % Eosinophils (%) (Auto) 2.2 0.0-8.0 % Basophils (%) (Auto) 0.7 0.0-5.0 % Neutrophils # (Auto) 6.4 1.8-7.7 K/uL Lymphocytes # (Auto) 3.2 1.0-4.8 K/uL Monocytes # (Auto) 0.8 0.1-1.0 K/uL Eosinophils # (Auto) 0.24 0.00-0.70 K/uL Basophils # (Auto) 0.07 0.00-0.20 K/uL Absolute Immature Granulocyte (auto 0.04 0-1 K/uL Nucleated Red Blood Cells 0.0 0.0-0.19 % Prothrombin Time 10.8 9.6-11.6 SEC Prothromb Time International Ratio 1.00 0.85-1.15 Activated Partial Thromboplast Time 24.5 L 26.3-35.5 SEC Sodium Level 139 136-145 mmol/L Potassium Level 5.2 H 3.5-5.1 mmol/L Chloride Level 105 101-111 mmol/L Carbon Dioxide Level 23 21-32 mmol/L Blood Urea Nitrogen 23 H 7-18 mg/dL Creatinine 1.6 H 0.5-1.0 mg/dL Glomerular Filtration Rate Calc 33 >90 mL/min Random Glucose 271 H 70-105 mg/dL Total Calcium 8.5 8.5-10.1 mg/dL Magnesium Level 2.10 1.80-2.40 mg/dL Total Creatine Kinase 35 # 21-232 U/L Troponin I High Sensitivity 14 4-50 ng/L B-Type Natriuretic Peptide 509 H 0-100 pg/mL DIAGNOSTICS / RADIOLOGY: [ ] Assessment : SVT Mild Hyperkalemia BRAIN on CKD Suspected UTI History of a fib History of pacemaker placement Hypertension Hyperlipidemia Plan Pt declined to be admitted. No admission orders were placed since patient declined admission. I discussed this with Dr Bertrand. Pt is A & O x 4 and understands the risks of not being admitted including increased risk of morbidity and mortality. Hospitalist service will be available if patient changes her mind. Further care to be provided by ED. ELLYN Pinedo MD, MD Jul 28, 2024 11:19
[2024-07-28] MEDS: NA ZIRCON CYCLOSIL(LOKELMA 10GM) PO ONE (11:21)
[2024-07-28] MEDS: furoSEMIDE 20MG VIAL IV ONE (11:21)
[2024-07-28] MEDS: cefTRIAXone 1G VIAL IVPB ONE (11:21)
[2024-07-28] MEDS ORDERED: CEPH500B PO (11:33)
[2024-07-28 12:02] VITALS: BP 133/60; PULSE 68; RESP 16; TEMP 98.2; O2SAT 100
--- NOTE | 2024-07-29 18:02 | EKG ---
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1950 Requested By: NICOLLE FRAGA Order Number: [id number] Reading MD: Spencer Vincent Measurements Intervals [place] Rate: 67 P: 0 GA: 64 QRS: -12 QRSD: 89 T: 159 QT: 441 QTc: 466 Interpretive Statements Atrial-paced rhythm Probable anterior infarct, age indeterminate Abnormal T, consider ischemia, lateral leads Compared to ECG 07/05/2024 14:25:36 Myocardial infarct finding now present T-wave abnormality now present Early repolarization no longer present Possible ischemia still present Electronically Signed On 07-30-2024 19:56:24 DIRECTOR OF ESTATE by Spencer Vincent Please click the below link to view image of tracing.
--- NOTE | 2024-07-30 07:37 | EKG ---
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
== END 2024-07-28 12:12 | disposition left against medical advice (07) ==
LOC: EDH 09:07
DX: E87.5 Hyperkalemia (principal); I47.10 Supraventricular tachycardia, unspecified; I50.33 Acute on chronic diastolic (congestive) heart failure; E11.9 Type 2 diabetes mellitus without complications; I10 Essential (primary) hypertension; E78.00 Pure hypercholesterolemia, unspecified; Z79.02 Long term (current) use of antithrombotics/antiplatelets; Z79.82 Long term (current) use of aspirin; Z79.84 Long term (current) use of oral hypoglycemic drugs; Z79.890 Hormone replacement therapy; Z79.899 Other long term (current) drug therapy; Z95.0 Presence of cardiac pacemaker; Z95.1 Presence of aortocoronary bypass graft
CPT/HCPCS: 99291; 96365; 96375; 96361; 82550; 83735; 84484; 80048; 83880; 85025; 85610; 85730; 87086 ×2; 87186; 81001; 36415; 71045; 93005 ×2; J0153; J7120; J0696; J1940

== ENCOUNTER 2024-10-05 20:55 | Emergency (ER) | payer MEDICARE ==
[~2024-10-05] VITALS: Ht 152.4 cm; Wt 80.7 kg
[~2024-10-05 20:55] MED LIST changes: +CEPH500B PO
[2024-10-05] MEDS ORDERED: 0.9%NACL 1000ML 1,000 ML IV ONE (21:00)
[2024-10-05 21:21] VITALS: BP 148/91; PULSE 148; RESP 26; TEMP 98.1; O2SAT 100
[2024-10-05] MEDS ORDERED: ADENOSINE 6MG VIAL IV ONE ×2 (21:30)
[2024-10-05] MEDS: metoPROLOL tartRATE 25 MG TAB PO ONE (21:36)
--- NOTE | 2024-10-05 21:39 | ERN ---
General Chief Complaint: Chest Pain Stated Complaint: CHEST PAIN, PALPITATIONS Time Seen by MD: 20:56 Source: patient, family History of Present Illness Initial Comments Patient is a 74-year-old female coming in to be evaluated for chest pressure and racing heart. Patient states that this began earlier today 30 minutes prior to arrival she does state she has a history of cardiac issues. 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 Allergies: Coded Allergies: No Known Allergies (Verified Allergy, Unknown, 08/28/23) No Known Drug Allergies (Verified Allergy, Unknown, 12/26/15) Home Meds Active Scripts Cephalexin Monohydrate (Keflex) 500 Mg Cap, 1 CAP PO TID for 10 Days, #30 CAP 0 Refills Prov:NICOLLE FRAGA MD 07/28/24 Ibuprofen (Ibuprofen) 600 Mg Tablet, 600 MG PO [id number] PRN for PAIN, #12 TAB 0 Refills Prov:STEPHANY TERAN NP 04/03/24 Metoprolol Succinate (Metoprolol Succinate) 50 Mg Tab.er.24h, 50 MG PO DAILY for 90 Days, #90 TAB 1 Refill Prov:PENNY SR Jr., MD 02/08/22 Aspirin (ASPIRIN 81 MG ECTAB) 81 Mg Ectab, 81 MG PO DAILY for 90 Days, #90 TAB.EC Prov:PENNY SR Jr., MD 02/08/22 Reported Medications Levothyroxine Sodium (Levothyroxine) 175 Mcg Capsule, 175 MCG PO DAILY, CAP 02/07/22 Glipizide (Glipizide ER) 2.5 Mg Tab.er.24, 2.5 MG PO DAILY 02/07/22 Ranolazine (Ranolazine ER) 500 Mg Tab.er.12h, 500 MG PO BID, TAB 02/07/22 Lorazepam (Lorazepam) 0.5 Gm Powder, 0.5 GM MC DAILY PRN for ANXIETY/AGITATION, APPL 02/07/22 Nitroglycerin (Nitroglycerin) 0.4 Mg Tab.subl, 0.4 MG SL q5min x3 PRN for CHEST PAIN, TAB.SL 05/06/20 Clopidogrel Bisulfate (Plavix) 75 Mg Tablet, 75 MG PO DAILY, TAB 12/26/15 Past Medical History Past Medical History: Diabetes-Type II, High Cholesterol, Hypertension Medical History Other: OA, Past Surgical History: Hysterectomy, CABG, Surgical History Other: PACEMAKER, CABG X 4 Social History Social History: Negative, Lives with family, Other Female( History) History: Not Applicable ROS Dictation CONSTITUTIONAL: No chills, no fever, no weakness, no diaphoresis, no malaise. HEAD/FACE: No signs of trauma. EENT: No eye pain, no blurred vision, no tearing, no double vision, no ear pain, no ear discharge, no nose pain, no nasal congestion, no throat pain, no throat swelling, no mouth pain. RESPIRATORY: No cough, no orthopnea, no SOB, no stridor, no wheezing. CARDIOVASCULAR: No chest pain, no edema, palpitations, no syncope. GASTROINTESTINAL/ABDOMINAL: No abdominal pain, no constipation, no diarrhea, no nausea, no vomiting. GENITOURINARY: No abnormal discharge, no dysuria, no frequent urination, no hematuria. No complaints of pain in the genitals. MUSCULOSKELETAL: No back pain, no gout, no joint pain, no joint swelling, no muscle pain, no muscle stiffness, no neck pain. INTEGUMENTARY: No change in color, no change in hair/nails, no dryness, no lesion, no lumps, no rash. NEUROLOGICAL/PSYCH: No anxiety, not depressed, no emotional problem, no headache, no numbness, no pre-existing deficit, no history of seizures, no tremors, no weakness. HEMATOLOGIC/LYMPHATIC: Not anemic, no history of blood clots, no apparent ble eding, no bruising, glands not swollen. All Systems Negative, Except as Noted. Physical Exam Physical Exam Dictation VITAL SIGNS: Reviewed. GENERAL APPEARANCE: Alert, oriented x3, no acute distress, obese. HEAD AND FACE: Non-traumatic. EYES: PERRL, pink conjunctivas, eyelid no trauma, anterior chamber clear. EARS: Pinnas intact and no signs of trauma or erythema. Ear canals clear and no discharge. TMs no erythema. NOSE: No discharge, no bleeding. OROPHARYNX: Mouth normal, teeth no caries, tongue pink. Pharynx clear, no erythema. Tonsils no exudates, no abscesses noted. Mucous membrane moist. NECK: Supple, non-tender, no thyromegaly, no masses, no JVD, no bruits. BREAST: Deferred. CHEST: No tenderness, no crepitus, no paradoxical movement, no retractions. LUNGS: Clear, well-ventilated, symmetric, no rales, no wheezing, no rhonchi, no stridor, good breath sounds bilaterally. HEART: Regular rate, regular rhythm, no murmur, no gallops. VASCULAR: No peripheral edema. ABDOMEN: Soft, positive bowel sounds, nondistended, no guarding, nontender, no rebound, no masses no hepatomegaly, no splenomegaly, no Sanchez's sign, no hernias. RECTAL: Deferred. GENITAL: Deferred. NEUROLOGICAL: Normal speech, gross motor function intact, gross sensory function intact. MUSCULOSKELETAL: Neck nontender, full range of motion, back nontender, full range of motion. EXTREMITIES: Nontender, full range of motion. SKIN: Color pink, dry, no turgor, no rash, no lacerations, no abrasions, no contusions. LYMPHATICS: Deferred. Results Laboratory and Microbiology Labs Reviewed?: Yes EKG/XRAY/US/CT/MRI EKG Comment 10/05/2024 time 2048 Ventricular rate [address] wave elevation or depression MDM MDM: Differential diagnosis: SVT, tachycardia, Patient is a 74-year-old female coming in to be evaluated for racing heart. On evaluation in triage patient was found to have an elevated heart rate EKG does confirm supraventricular tachycardia. Throughout ER visit patient was refusing IV states that she was a hard stick does not want him to try and with the wounds. Personally I tried with my ultrasound but patient would not let me. Put medications for SVT which patient refused as well. Was notified by nursing staff that patient eloped. Prior to this I had advised patient that we needed to control her heart rate as this could be deadly and could cause her to have a heart attack since he does have a history of CAD as well. Was notified by nursing staff the patient knowing this still left accompanied her out of ER. ED Course Orders Procedure Category Date Status Time Cbc With Differential LAB 10/05/24 Logged 20:57 Prothrombin Time With LAB 10/05/24 Logged INR 20:57 B-Type Natriuretic LAB 10/05/24 Logged Peptide 20:57 Chest 1vw RAD 10/05/24 Taken 20:57 12 Lead Ekg Tracing- EKG 10/05/24 Logged Technical 20:57 0.9%Nacl 1000ml (Ns PHA 10/05/24 Complete 1000ml) 21:00 Magnesium LAB 10/05/24 Logged 20:57 Creatine Kinase, Total LAB 10/05/24 Logged 20:57 Troponin I High LAB 10/05/24 Logged Sensitivity 20:57 Urinalysis Profile LAB 10/05/24 Logged 20:57 Partial LAB 10/05/24 Logged Thromboplastin Time 20:57 Basic Metabolic Panel LAB 10/05/24 Logged 20:57 Adenosine 6mg Vial PHA 10/05/24 Complete (Adenocard 6mg Vial) 21:30 Adenosine 6mg Vial PHA 10/05/24 Complete (Adenocard 6mg Vial) 21:30 Metoprolol Tartrate PHA 10/05/24 Complete 25 Mg Tab (Lopressor 21:30 Current Medications Medications (Trade) Dose Ordered Sig/Wilson Route PRN Reason Start Time Stop Time Status Last Admin Dose Admin Adenosine (Adenocard 6mg Vial) 6 mg ONCE ONCE IV 10/05/24 21:30 10/05/24 21:31 DC Adenosine (Adenocard 6mg Vial) 12 mg ONCE ONCE IV 10/05/24 21:30 10/05/24 21:31 DC Metoprolol Tartrate (loprESSOR) 25 mg ONCE ONCE PO 10/05/24 21:30 10/05/24 21:31 DC Sodium Chloride 1,000 ml @ 0 mls/hr ONCE ONCE IV 10/05/24 21:00 10/05/24 21:01 DC Vital Signs Date Time Temp Pulse Resp B/P (MAP) Pulse Ox O2 Delivery O2 Flow Rate FiO2 10/05/24 21:21 98.1 148 26 148/91 100 Nasal Cannula* 2 28 10/05/24 20:56 169 30 DX & DISP Disposition: AMA Departure Impression: Primary Impression: SVT (supraventricular tachycardia) Condition: Stable Additional Instructions: Was notified by nursing staff the patient eloped. Referrals: KENNETH COOL (PCP) Time of Disposition: 21:39 NICOLLE FRAGA MD Oct 05, 2024 21:39
--- NOTE | 2024-10-05 21:52 | NUR ---
PT REFUSED BLOOD DRAW REQUESTED TO LEAVE AGAINST MEDICAL ADVISE (AMA). INSTRUCTED PATIENT AND OF RISKS INVOLVED WITH LEAVING AMA TO INCLUDE WORSENING OF CONDITON AND/OR . PATIENT AND VERBALIZED UNDERSTANDING INSTRUCTIONS. ASSUMED RISKS WITH LEAVEING AMA. AMA FORM SIGNED. DR FRAGA WAS MADE AWARE. PATIENT AAOX4 IN FULL CAPACITY TO SIGN CONSENT.
--- NOTE | 2024-10-05 22:24 | EKG ---
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 : 1950 Requested By: NICOLLE FRAGA Order Number: [id number] Reading MD: Aleyda York Measurements Intervals [place] Rate: 169 P: 0 PA: 0 QRS: -30 QRSD: 88 T: 141 QT: 272 QTc: 456 Interpretive Statements Supraventricular tachycardia Left axis deviation Anterior infarct, old Compared to ECG 07/28/2024 09:31:36 Left-axis deviation now present Early repolarization now present Atrial-paced complex(es) or rhythm no longer present Ventricular-paced complex(es) or rhythm no longer present T-wave abnormality no longer present Possible ischemia no longer present Myocardial infarct finding still present Electronically Signed On 10-08-2024 15:57:50 BLOW MOLD MACHINE OPERATOR by Aleyda York Please click the below link to view image of tracing.
--- NOTE | 2024-10-06 08:16 | HMCIMG ---
PORTABLE CHEST RADIOGRAPH INDICATION: cp COMPARISON: 07/28/2024 FINDINGS: Median sternotomy wires are in appropriate alignment. Left sided dual chamber pacer and continuous leads remain in customary position. Median sternotomy wires as well as fixation plates and screws are in appropriate alignment. Heart size is normal. The pulmonary vascularity and maldonado appear normal. No abnormal pulmonary parenchymal opacity or consolidation identified. No significant pleural effusion noted. No pneumothorax detected. IMPRESSION: No radiographic evidence for any acute cardiopulmonary process.
== END 2024-10-05 21:58 ==
LOC: EDH 20:55
DX: I47.10 Supraventricular tachycardia, unspecified (principal); E11.9 Type 2 diabetes mellitus without complications; E78.00 Pure hypercholesterolemia, unspecified; I10 Essential (primary) hypertension; Z79.02 Long term (current) use of antithrombotics/antiplatelets; Z79.82 Long term (current) use of aspirin; Z79.84 Long term (current) use of oral hypoglycemic drugs; Z79.890 Hormone replacement therapy; Z79.899 Other long term (current) drug therapy; Z90.710 Acquired absence of both cervix and uterus; Z95.0 Presence of cardiac pacemaker; Z95.1 Presence of aortocoronary bypass graft
CPT/HCPCS: 71045; 93005; 99283; J0153

== ENCOUNTER → 2024-11-01 | Outpatient (CLI) | payer MEDICARE | END | disposition home or self-care (01) | LOC: SHCH 09:51 | PROVIDERS: ATTEND Student in an Organized Health Care Education/Training Program | DX: R06.09 Other forms of dyspnea (principal) | CPT/HCPCS: 93306 ==

== ENCOUNTER → 2024-11-30 | Outpatient (CLI) | payer MEDICARE ==
[~2024-11-30] MED LIST changes: -GLIP2.5T2 PO; +GLIP2.5T23 PO
[2024-11-30 12:20] LABS: ALBUMIN 3.8 g/dL (3.5-5.0); BILIRUBIN,TOTAL 0.4 mg/dL (0.2-1.0); CREATININE 1.3 mg/dL (0.5-1.0); TOTAL PROTEIN, SERUM 6.8 g/dL (6.0-8.3)
== END | disposition home or self-care (01) ==
LOC: LAB 10:48
PROVIDERS: ATTEND Student in an Organized Health Care Education/Training Program
DX: R07.9 Chest pain, unspecified (principal)
CPT/HCPCS: 36415; 80053; 80061

== ENCOUNTER 2025-04-19 07:00 | Day surgery (SDC) | payer MEDICARE ==
[2025-04-17 09:05] LABS: IMMATURE GRANULOCYTE ABSOLUTE 0.03 K/uL (0-1); NUCLEATED RED BLOOD CELLS 0.0 % (0.0-0.19); PLATELET COUNT (AUTO) 305 K/uL (130-400); RED BLOOD CELL COUNT(AUTO) 4.13 MIL/uL (4.00-5.50); RED CELL DISTRIBUTION WIDTH 19.7 % (11.0-15.5); WHITE BLOOD COUNT (AUTO) 6.6 K/uL (4.8-10.8)
[2025-04-17 09:13] LABS: CREATININE 1.1 mg/dL (0.5-1.0); GLOMERULAR FILTR. RATE CALC 52.0 mL/min (>90); GLUCOSE,RANDOM 114.0 mg/dL (70-105); SODIUM SERUM 140.0 mmol/L (136-145); UREA NITROGEN, BLOOD 29.0 mg/dL (7-18)
[2025-04-17 09:27] LABS: APPEARANCE,URINE CLOUDY (CLEAR); GLUCOSE, URINE (UA) NEGATIVE (NEGATIVE); LEUKOCYTE ESTERASE ,URINE 25 Leu/uL (NEGATIVE); NITRATE,URINE 2+ (NEGATIVE); OCCULT BLOOD,URINE NEGATIVE (NEGATIVE)
[2025-04-17 09:33] LABS: INR 1.03 (0.85-1.15)
[2025-04-17 09:37] LABS: ADD UA MICROSCOPIC YES
[2025-04-17 09:45] VITALS: BP 141/68; PULSE 90; RESP 17; TEMP 97.2
[2025-04-17 09:48] LABS: NON-SQUAMOUS EPITHELIAL CELL <1 /HPF (0-2); SQUAMOUS EPITHELIAL CELL,UR FEW /HPF (0-2)
--- NOTE | 2025-04-17 10:20 | EKG ---
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: [id number] : 1950 Requested By: ANALY ORO Order Number: [id number] Reading MD: Analy Oro Measurements Intervals [place] Rate: 65 P: 0 MD: 183 QRS: -16 QRSD: 85 T: 226 QT: 436 QTc: 454 Interpretive Statements Atrial-paced rhythm Abnormal T, probable ischemia, widespread Compared to ECG 03/25/2025 14:25:09 T-wave abnormality now present Possible ischemia now present Intraventricular conduction delay no longer present Left ventricular hypertrophy no longer present Early repolarization no longer present ST (T wave) deviation no longer present Electronically Signed On 04-20-2025 19:46:45 CDT by Analy Oro Please click the below link to view image of tracing.
--- NOTE | 2025-04-17 15:07 | HMCIMG ---
EXAM: CR Chest, 1 View. CLINICAL HISTORY: PREOP COMPARISON: Radiograph dated March 25, 2025 FINDINGS: LUNGS: There is no mass, infiltrate, or acute pulmonary abnormality. PLEURAL SPACES: No evidence of pleural effusion or pneumothorax. MEDIASTINUM: Pacemaker and leads are unchanged in positions. Cardiac size and mediastinal contours within normal limits. BONES: No aggressive appearing osseous lesion seen. IMPRESSION: No acute cardiopulmonary pathology is evident. /[place]
--- NOTE | 2025-04-18 09:07 | NUR ---
REPORT REPORTED UA/URINE CX/CBC/BNP/BMP TO DR ANALY MARIE. NO NEW ORDERS AT THIS TIME. STATED HE WOULD TREAT FOR URINE DAY OF PROCEDURE
[2025-04-19] VITALS (10 sets, daily range): BP systolic 99–174; BP diastolic 44–89; PULSE 60–79; RESP 12–20; TEMP 97.1–97.7
[~2025-04-19] VITALS: Ht 152.4 cm; Wt 65.1 kg
[~2025-04-19 07:00] MED LIST changes: -AEC81 PO; +ATOR40TA69 PO; -CEPH500B PO; +FAMO20TA8 PO; +FURO20TA4 PO; -GLIP2.5T23 PO; -IBUP-2070 PO; -LEVO175C2 PO; -LORA0.5P MC; -METO-391 PO; +METO-409 PO
[2025-04-19] MEDS: 0.9%NACL 1000ML 1,000 ML IV SCH (08:24)
[2025-04-19] MEDS ORDERED: LIDOCAINE HCL 400MG/20ML VIAL ONE (10:52)
[2025-04-19] MEDS ORDERED: IOHEXOL 350 MG/ML 100ML INFUS..BTL IV ONE (10:52)
[2025-04-19] MEDS ORDERED: VERAPAMIL HCL 2.5 MG/ML VIAL ONE (10:52)
[2025-04-19] MEDS ORDERED: HEParin-NS 1,000 UNIT/500 ML 1,000 ML IV ONE (10:52)
[2025-04-19] MEDS ORDERED: NITROGLYCERIN 50MG VIAL ONE (10:53)
[2025-04-19] MEDS ORDERED: MIDAZOLAM HCL 1 MG/ML 2ML VIAL ONE ×3 (11:16→11:48)
--- NOTE | 2025-04-19 12:12 | PRN ---
PROCEDURE REPORT DATE OF PROCEDURE: Apr 19, 2025 MOBILE HOME LOT UTILITY WORKER: [Analy infante MD ] PROCEDURE PERFORMED: Conscious sedation Ultrasound guided left radial artery access Selective left subclavian angiogram Selective left coronary artery angiogram Selective right coronary artery angiogram Left heart catheterization Selective SVG to LAD angiogram Selective SVG to D1 angiogram Selective SUE angiogram TR band 13 fabian over left radial artery INDICATION: Abnormal CCTA DESCRIPTION OF PROCEDURE: After informed consent was obtained, the patient was prepped and draped in the usual sterile fashion. A 6 Mosotho arterial sheath was inserted in the left radial artery using ultrasound guidance with first pass wall puncture. The arterial sheath was aspirated and flushed. A 5F [employer] cath was advanced over the wire and intot he left subclavian we performed a left subclavian angiogram. We then used the same catheter to select engage the SUE followed by an angiogram. We exchanged the catheter for a 6F JR-4 was advanced to the ascending aorta over the J-tipped guidewire and was used for selective right coronary angiograms in multiple oblique views with findings as outlined below. The JR-4 catheter advanced into the LV and pressures were obtained with a pull- back across the aortic valve. We then used a JR4 catheter to select engage the SVG to LAD as well as the SVG to D1 grafts. Patient had significant left radial artery to spasm so we removed the JR4 provided an additional 2.5 of verapamil was a radial cocktail and advanced a five Mosotho JL 3.5 diagnostic catheter over the wire into the left coronary artery followed by multiple angiographic images. Following we have all the angiographic images decision was made to terminate the procedure. A TR band was placed over the left radial artery with patent hemostasis. Patient tolerated procedure well with no postprocedural complication was transferred to laborer rags holding in stable condition. FLUOROSCOPY TIME: 7.5 min LEFT HEART HEMODYNAMICS: LVEDP 21 mm Hg and no gradient Ao CORONARY ANGIOGRAM: LEFT MAIN: Patent and 0% stenosis. Gives rise to LCx and LAD. LEFT ANTERIOR DESCENDING: Large vessel giving rise to two Diagonal branches. Calcified with 100% proximal JUNIOR BRAND MANAGER. Fills distally via a patent SVG to LAD graft. D1 has ostial stenosis fills distally via competitive flow via a patent graft. LEFT CIRCUMFLEX: Large, dominant and gives rise to two OM branches. Calcified and patent. OMs are patent. RIGHT CORONARY ARTERY: Small, nondominant vessel that is heavily calcified with 90 95% proximal stenosis followed by JUNIOR BRAND MANAGER distally HEMOSTASIS: TR band 12 fabian over LEFT radial artery INTERVENTIONS: None. COMPLICATIONS: None FINDINGS: Multivessel CAD with patent SVG to LAD and SVG to D1 grafts. Patient is a small nondominant RCA which was heavily calcified with critical disease and not amenable to PCI ESTIMATED BLOOD LOSS: 115 cc RECOMMENDATIONS/INSTRUCTIONS: Aggressive risk factor modification. Optimize GGT and antianginals CONTRAST DELIVERED TO PATIENT (mL): 50cc ANALY Thomas MD, MD Apr 19, 2025 12:12
[2025-04-19] MEDS ORDERED: DEXTROSE 50%-WATER 50 ML DISP.SYRIN IV PRN (12:30)
[2025-04-19] MEDS ORDERED: 0.9%NACL 1000ML 1,000 ML IV SCH (12:30)
[2025-04-19] MEDS ORDERED: GLUCAGON 1MG KIT 1 MG ML IM PRN (12:30)
--- NOTE | 2025-04-19 13:50 | NUR ---
VASC BAND: VASC BAND REMOVED WITH NO ACTIVE BLEEDING PRESENT. CLEANSED AREA WITH CHLORAPREP AND APPLIED STERILE 4X4 GAUZE THEN 2X2 TEGADERM. NO REDNESS/SWELLING NOTED TO SURROUNDING AREA RT WRIST.
== END 2025-04-19 15:50 | disposition home or self-care (01) ==
LOC: DAH 07:00
PROVIDERS: ATTEND Student in an Organized Health Care Education/Training Program
DX: R94.39 Abnormal result of other cardiovascular function study (principal); I25.118 Atherosclerotic heart disease of native coronary artery with other forms of angina pectoris; I25.82 Chronic total occlusion of coronary artery; I10 Essential (primary) hypertension; I47.19 Other supraventricular tachycardia; R00.2 Palpitations; I48.91 Unspecified atrial fibrillation; E11.9 Type 2 diabetes mellitus without complications; E03.9 Hypothyroidism, unspecified; G47.33 Obstructive sleep apnea (adult) (pediatric); E78.5 Hyperlipidemia, unspecified; Z99.89 Dependence on other enabling machines and devices; Z95.0 Presence of cardiac pacemaker; Z90.710 Acquired absence of both cervix and uterus; Z90.89 Acquired absence of other organs; Z79.01 Long term (current) use of anticoagulants; Z79.82 Long term (current) use of aspirin; Z98.890 Other specified postprocedural states; Z79.899 Other long term (current) drug therapy
CPT/HCPCS: 80048; 83880; 85025; 85610; 85730; 87086 ×2; 81001; 36415; 71045; 93005; 93459; 87186; 82948 ×2; 99156; 99157; C1769 ×2; C1887; A4649; C1894; J1200 ×2; J3010 ×2; J0690; J3490 ×3; J7030; J0360; J1644 ×2; J2250 ×3; Q9967; A4215; A4335; A4222; A6260; A4221; A4663; A4216; A6206; A4606; Q9965 ×2; A4223 ×3; A4554; 96360; 96361